=== PATIENT | female | born 1990 | race Caucasian/White ===

== ENCOUNTER → 2017-10-20 | Emergency (ER) | payer OTHER, SELFPAY | DX: J01.00 Acute maxillary sinusitis, unspecified (principal); H66.93 Otitis media, unspecified, bilateral | CPT/HCPCS: 87804; 87880 ==

== ENCOUNTER → 2020-06-09 09:45 | Outpatient (CLI) | payer OTHER, SELFPAY ==
[2020-06-10 14:04] LABS: Covid-19 Nasal PCR Sendout Lex Not Detected
== END ==
PROVIDERS: PCP Internal Medicine Adolescent Medicine; Visit Provider Internal Medicine Adolescent Medicine
DX: Z03.818 Encounter for observation for suspected exposure to other biological agents ruled out (principal)
CPT/HCPCS: U0004

== ENCOUNTER → 2020-08-04 14:19 | Outpatient (CLI) | payer OTHER, SELFPAY ==
--- NOTE | 2020-08-04 14:24 | XR_ITS ---
PROCEDURE: XR FOOT WT BEARING LT 3V CLINICAL INDICATION: left hallux fracture Pain and swelling COMPARISON: No exams were available for comparison FINDINGS: There is a nondisplaced oblique fracture involving the base and lateral aspect of the distal phalanx of the great toe extending into the articular surface proximally. Mild pes planus. Other findings:None. IMPRESSION: Nondisplaced fracture distal phalanx great toe Dictated by: Elmer Bartholomew MD 08/04/2020 14:46 Elmer Bartholomew MD in [place] 08/04/2020 14:46
== END ==
PROVIDERS: PCP Internal Medicine Adolescent Medicine; Visit Provider Podiatrist
DX: M79.672 Pain in left foot (principal); S90.32XA Contusion of left foot, initial encounter
CPT/HCPCS: 73630

== ENCOUNTER → 2020-09-26 10:42 | Outpatient (CLI) | payer OTHER, SELFPAY ==
[2020-09-26 11:28] LABS: Adenovirus,PCR Not Detected (NotDetected); Bordetella Pertussis Not Detected (NotDetected); Chlamydophila Pneumoniae, PCR Not Detected (NotDetected); Coronavirus 229E Not Detected (NotDetected); Coronavirus NL63 Not Detected (NotDetected); Coronavirus OC43 Not Detected (NotDetected); Coronovirus HKU1,PCR Not Detected (NotDetected); Human Metapneumovirus Not Detected (NotDetected); Influenza A, PCR Not Detected (NotDetected); Influenza AH1, 2009 Not Detected (NotDetected); Influenza AH1, PCR Not Detected (NotDetected); Influenza AH3,PCR Not Detected (NotDetected); Influenza B, PCR Not Detected (NotDetected); Mycoplasma Pneumoniae, PCR Not Detected (NotDetected); Parainfluenza 1, PCR Not Detected (NotDetected); Parainfluenza 2, PCR Not Detected (NotDetected); Parainfluenza 3, PCR Not Detected (NotDetected); Parainfluenza 4, PCR Not Detected (NotDetected); Respiratory Syncytial Virus Not Detected (NotDetected); Rhinovirus/Enterovirus Not Detected (NotDetected)
[2020-09-26 15:00] LABS: Coronavirus 19, PCR Detected (NotDetected)
== END ==
PROVIDERS: PCP Internal Medicine Adolescent Medicine; Visit Provider Internal Medicine Adolescent Medicine
DX: Z20.828 Contact with and (suspected) exposure to other viral communicable diseases (principal); U07.1 COVID-19; R05 Cough
CPT/HCPCS: 87581; 87633; 87798; U0003